=== PATIENT | female | born 1945 | race Caucasian/White ===

== ENCOUNTER → 2016-06-24 | Outpatient (CLI) | payer MEDICARE, OTHER ==
[~2016-06-24] MED LIST: BIOT5TAB PO; CALC-52 PO; CHOL200047 PO; FISH1CAP2 PO; KENALOG CREAM TOP; LORA10TA7 PO; MULT-1243 PO; TIMO5DRO36 RIGHT EYE
--- NOTE | 2016-06-24 14:50 | DI ---
Indication: ITS.REASON: R09.89 CAROTID BRUIT PROCEDURE: US CAROTID DOPP COMPLETE: TECHNIQUE: Grayscale, color and duplex Doppler imaging was performed of the carotid systems bilaterally. Velocities in cm/sec - validated velocity measurements with angiographic measurements, velocity criteria are extrapolated from diameter data as defined by the Society of Radiologists in Ultrasound Consensus Conference Radiology 2003; 229;340-346. RIGHT: PSV ICA 112 EDV ICA 48.1 PSV CCA 116 EDV CCA 31.4 PSV ECA ICA Diameter reduction 20%-40% (1.2-1.4 [id number])% LEFT: PSV ICA 119 EDV ICA 48.5 PSV CCA 117 EDV CCA 36.3 PSV ECA 79.7 ICA Diameter reduction 20%-40% (1.2-1.4 [id number])% The right vertebral artery is patent with cephalic flow. The left vertebral artery is patent with cephalic flow. Scattered atherosclerotic plaque in the carotid bulbs and proximal ICAs. IMPRESSION: No hemodynamically significant carotid stenosis. .
== END ==
LOC: IMA 12:43
PROVIDERS: ATTEND Nurse Practitioner
DX: Z12.31 Encounter for screening mammogram for malignant neoplasm of breast (principal); N64.89 Other specified disorders of breast; N64.59 Other signs and symptoms in breast; M85.88 Other specified disorders of bone density and structure, other site; I65.23 Occlusion and stenosis of bilateral carotid arteries; R09.89 Other specified symptoms and signs involving the circulatory and respiratory systems
CPT/HCPCS: 77063; 77080; 93880; G0202